=== PATIENT | male | born 1945 | race Caucasian/White ===

== ENCOUNTER → 2018-01-22 10:23 | Outpatient (BNVA) | payer MEDICARE, OTHER, SELFPAY | PROVIDERS: Visit Provider Student in an Organized Health Care Education/Training Program | DX: M85.642 Other cyst of bone, left hand (principal) | CPT/HCPCS: 99214 ==

== ENCOUNTER 2019-04-01 08:37 | Outpatient (REF) | payer MEDICARE, OTHER, SELFPAY ==
[2019-04-01 12:32] LABS: ALT 23 U/L (16-63); AST 12 U/L (15-37); Albumin 3.8 g/dL (3.4-5.0); Alkaline Phosphatase 55 U/L (46-116); Anion Gap 7.6 mmol/L (3-11); BUN 27 mg/dL (7-18); Bilirubin, Total 0.4 mg/dL (0.2-1.0); CO2 29.4 mmol/L (21.0-32.0); CREATININE 1.15 mg/dL (0.70-1.30); Calcium 8.9 mg/dL (8.5-10.1); Calculated LDL 166 mg/dL (<100); Chloride 105 mmol/L (98-107); Cholesterol 267 mg/dL (<200); Glucose 91 mg/dL (74-106); HDL Cholesterol 84 mg/dL (40-60); Potassium 4.6 mmol/L (3.5-5.1); Sodium 142 mmol/L (136-145); Triglyceride 85 mg/dL (<150)
== END 2019-04-01 08:57 ==
LOC: NCHCN 08:37
PROVIDERS: PCP Family Medicine; Visit Provider Family Medicine
DX: E78.5 Hyperlipidemia, unspecified (principal); I10 Essential (primary) hypertension
CPT/HCPCS: 80053; 80061

== ENCOUNTER 2020-01-08 15:32 | Outpatient (CLI) | payer MEDICARE, OTHER, SELFPAY ==
--- NOTE | 2020-02-12 08:43 | W.CARDEVENT ---
Date of service: 02/12/20 Time of Service: 08:43 Cardiac Event Recorder Referring Provider:: alexis Indications:: syncope Cardiac Event Note: This is a 30-day event recorder ordered for indication of syncope. ?The patient was in normal sinus rhythm for the majority of the recording with an average heart rate of 68 bpm. ?There were 0 critical and 0 serious events. ?There were no episodes of atrial fibrillation, no pauses greater than 3 seconds and no evidence of high degree heart block. ?There was 1 patient triggered event which was associated with sinus rhythm.
== END 2020-01-08 15:52 ==
PROVIDERS: PCP Family Medicine; Visit Provider Family Medicine
DX: R55 Syncope and collapse (principal)
CPT/HCPCS: 93270

== ENCOUNTER 2020-08-15 14:41 | Outpatient (REF) | payer MEDICARE, OTHER, SELFPAY ==
[2020-08-15 22:59] LABS: ALT 30 U/L (16-63); AST 20 U/L (15-37); Albumin 3.7 g/dL (3.4-5.0); Alkaline Phosphatase 64 U/L (46-116); Anion Gap 11.7 mmol/L (3-11); BUN 27 mg/dL (7-18); Bilirubin, Total 0.7 mg/dL (0.2-1.0); CO2 23.3 mmol/L (21.0-32.0); Calcium 8.6 mg/dL (8.5-10.1); Calculated LDL 132 mg/dL (<100); Chloride 106 mmol/L (98-107); Cholesterol 234 mg/dL (<200); Glucose 122 mg/dL (74-106); HDL Cholesterol 70 mg/dL (40-60); Potassium 4.1 mmol/L (3.5-5.1); Sodium 141 mmol/L (136-145); Total Protein 6.7 g/dL (6.4-8.2); Triglyceride 160 mg/dL (<150)
[2020-08-16 17:02] LABS: PSA, Screening 1.8 ng/mL (0.0-6.5)
== END 2020-08-15 14:42 | disposition home or self-care (01) ==
LOC: NCHCN 14:41
PROVIDERS: PCP Family Medicine; Visit Provider Family Medicine
DX: I10 Essential (primary) hypertension (principal); E78.5 Hyperlipidemia, unspecified; N40.0 Benign prostatic hyperplasia without lower urinary tract symptoms; Z12.5 Encounter for screening for malignant neoplasm of prostate
CPT/HCPCS: 80053; 80061; 84153

== ENCOUNTER 2022-05-14 09:24 | Outpatient (REF) | payer MEDICARE, OTHER, SELFPAY ==
[2022-05-14 16:52] LABS: Albumin 3.9 g/dL (3.4-5.0); Anion Gap 7.2 mmol/L (3-11); BUN 28 mg/dL (7-18); CO2 29.8 mmol/L (21.0-32.0); CREATININE 1.2 mg/dL (0.70-1.30); Calcium 9.1 mg/dL (8.5-10.1); Chloride 105 mmol/L (98-107); Estimated GFR 63.46 (mL/min/1.73m2); Glucose 99 mg/dL (74-106); Potassium 4.5 mmol/L (3.5-5.1); Sodium 142 mmol/L (136-145)
[2022-05-14 18:53] LABS: ALT 24 U/L (16-63); AST 14 U/L (15-37); Alkaline Phosphatase 67 U/L (46-116); Bilirubin, Total 0.6 mg/dL (0.2-1.0); Calculated LDL 160 mg/dL (<100); Cholesterol 271 mg/dL (<200); HDL Cholesterol 86 mg/dL (40-60); Total Protein 6.8 g/dL (6.4-8.2); Triglyceride 125 mg/dL (<150)
[2022-05-14 22:27] LABS: PSA, Screening 2.1 ng/mL (<=6.5)
== END 2022-05-14 09:25 | disposition home or self-care (01) ==
LOC: NCHCN 09:24
PROVIDERS: PCP Family Medicine; Visit Provider Family Medicine
DX: I10 Essential (primary) hypertension (principal); E78.5 Hyperlipidemia, unspecified; N40.0 Benign prostatic hyperplasia without lower urinary tract symptoms; Z12.5 Encounter for screening for malignant neoplasm of prostate
CPT/HCPCS: 80053; 80061; 84153

== ENCOUNTER 2022-07-04 10:39 | Outpatient (REF) | payer MEDICARE, OTHER, SELFPAY ==
[2022-07-04 14:30] LABS: ALT 32 U/L (16-63); AST 19 U/L (15-37)
== END 2022-07-04 10:40 | disposition home or self-care (01) ==
LOC: NCHCN 10:39
PROVIDERS: PCP Family Medicine; Visit Provider Family Medicine
DX: I10 Essential (primary) hypertension (principal)
CPT/HCPCS: 84450; 84460

== ENCOUNTER 2023-06-05 11:28 | Outpatient (REF) | payer MEDICARE, OTHER, SELFPAY ==
[2023-06-05 14:47] LABS: HCT 43.2 % (40.0-50.0); HGB 14.4 g/dL (13.5-17.5); MCH 32.4 pg (27.0-33.0); MCHC 33.3 % (32.0-36.0); MCV 97 fL (80-95); MPV 9.4 fL (8.0-11.0); Platelet Count 223 10^3/uL (130-400); RBC 4.44 10^6/uL (4.36-5.78); RDW 12.7 % (11.8-14.1); RDW-SD 45.6 fL; WBC 5.42 10^3/uL (4.4-10.8)
[2023-06-05 15:10] LABS: ALT 26 U/L (16-63); AST 15 U/L (15-37); Albumin 3.9 g/dL (3.4-5.0); Alkaline Phosphatase 64 U/L (46-116); Anion Gap 8.9 mmol/L (3-11); BUN 36 mg/dL (7-18); Bilirubin, Total 0.4 mg/dL (0.2-1.0); CO2 28.1 mmol/L (21.0-32.0); CREATININE 1.2 mg/dL (0.70-1.30); Calcium 8.9 mg/dL (8.5-10.1); Calculated LDL 106 mg/dL (<100); Chloride 108 mmol/L (98-107); Cholesterol 209 mg/dL (<200); Estimated GFR 63.07 (mL/min/1.73m2); Glucose 98 mg/dL (74-106); HDL Cholesterol 94 mg/dL (40-60); Potassium 4.4 mmol/L (3.5-5.1); Sodium 145 mmol/L (136-145); Triglyceride 47 mg/dL (<150)
== END 2023-06-05 11:29 | disposition home or self-care (01) ==
LOC: NCHCN 11:28
PROVIDERS: PCP Family Medicine; Visit Provider Family Medicine
DX: Z00.00 Encounter for general adult medical examination without abnormal findings (principal)
CPT/HCPCS: 80053; 80061; 85027

== ENCOUNTER → 2023-07-25 11:00 | Outpatient (BNVA) | payer MEDICARE, OTHER, SELFPAY | PROVIDERS: PCP Family Medicine; Referring Provider Family Medicine; Visit Provider Physical Therapy Assistant | DX: Z12.11 Encounter for screening for malignant neoplasm of colon (principal) ==

== ENCOUNTER 2023-08-12 06:11 | Day surgery (SDC) | payer MEDICARE, OTHER, SELFPAY ==
--- NOTE | 2023-08-11 15:08 | PDOC.DSDIS_ITS ---
Date of service: 08/12/23 Time of Service: 07:47 Discharge Plan Disposition Patient Disposition: Home Condition: Good Discharge Details Reason For Visit: screening colonoscopy Attending Provider: Antonio Sheldon Primary Care Provider: Herson Anand Home Meds and New Rx's Prescriptions: Continued CPAP Machine 10 unit 10 cm Transdermal HS Qty: 1 0RF Rx Instructions: CPAP MACHINE with humidifier and supplies. Pressure 10 cm H2O. DX: Sleep Apnea, 327.23. aspirin [Aspir-81] 81 MG tablet,delayed release (DR/EC) 81 mg PO DAILY tamsulosin [Flomax] 0.4 MG capsule 0.4 mg PO DAILY Qty: 90 Rx Instructions: for lower urinary track symptoms prednisolone acetate 5 ML drops,suspension 1 drp OS BID Patient Comments: 11/26/16 Dr Kurtz ([facility] in [place]). dc lisinopril-hydrochlorothiazide 20-12.5 mg tablet 1 tab PO DAILY simvastatin 20 mg tablet 20 mg PO DAILY cholecalciferol (vitamin D3) 25 mcg (1,000 unit) capsule 25 mcg PO DAILY Discontinued bisacodyl [Dulcolax (bisacodyl)] 5 mg tablet,delayed release (DR/EC) 5 mg PO ONCE Qty: 4 0RF Rx Instructions: Take per colonoscopy instructions provided by ordering providers office polyethylene glycol 3350 17 gram/dose powder 17 g PO ONCE Qty: 238 0RF Rx Instructions: Take per colonoscopy instructions provided by ordering providers office Discharge Instructions Additional Instructions: Prasanna, I really enjoyed meeting you today, and I am glad that you came in for your colonoscopy. Your prep was excellent, and I could see everything just fine. The colon is totally normal. Technically, you are good for 10 years. The most modern recommendations suggest to consider screening colonoscopy up to age 85. When he had 87, would encourage you to have a discussion with your primary care physician and get their opinion. If you are doing well, feel like you are in good shape, and this past colonoscopies have been an okay experience, and I be more than happy to do another scope at age 87. Alternatively, if you decide that this is her last one, I am certainly not offended. If you need anything at all, or have any questions, please do not hesitate to call. 1. If tolerated, consume a soft, low fiber diet for 1-2 days. 2. Do not drive, drink alcohol, operate machinery, make critical decisions, or do activities that require coordination or balance for 24 hours. 3. Because air was put into your colon during the procedure, expelling air from your rectum (passing gas or farting) is normal. 4. You may not have a bowel movement for 1-3 days because of the colonoscopy prep. This is normal. 5. Go directly to the emergency room if you notice any of the following: Develop chills (warm to touch), or if you have a thermometer and your temperature is above 101 Difficulty breathing or difficultly swallowing Persistent vomiting Severe abdominal pain, other than gas cramps Severe chest pain Black, tarry stools Any bleeding ? exceeding one tablespoon 6. Call your physician if the site where your intravenous was started becomes red, swollen, painful, and warm to touch. 7. Your physician has reviewed your pre-procedure medications. Please continue to take those medications as previously ordered. You will be given specific information/education regarding any changes to your medications before leaving. Activity:: Activity as Tolerated Diet:: As Tolerated Discharge Orders Discharge Orders: Discharge Order (Routine); Ordered 08/11/23 Ordered By: Antonio Sheldon DS: Diagnosis Discharge Diagnosis (1) Encounter for screening colonoscopy: Status: Acute Asessment and Plan: Negative screening colonoscopy today
--- NOTE | 2023-08-11 15:09 | W.COLOREPORT ---
Date of service: 08/12/23 Time of Service: 07:48 Colonoscopy Report Date of procedure: 08/12/23 Pre-op diagnosis general: screning colonoscopy Procedure: colonoscopy Surgeon: Antonio Sheldon Anesthesia Type: General:No Airway Estimated blood loss (mL): 0 Pathology: none sent Complications: None Disposition: same day Indications: Prasanna is a 77 year old man who needs a screening colonoscopy Prep: Miralax/Dulcolax Procedure Start Time: 07:27 Procedure End Time: 07:43 Retraction Time: 8 Findings: Negative screening colonoscopy Procedure Description: After the induction of anesthesia, and with the patient in left lateral decubitus position, I began by performing an external anorectal exam.? Perineum and skin were normal, as was the anal verge.? There was no evidence of external hemorrhoids.? Next, I performed a digital rectal exam.? I did not appreciate any abnormal findings.? Next, I advanced a colonoscope into the rectal vault.? I performed retroflexion.? This appeared normal.? Using insufflation, I then advanced the colonoscope beyond the rectal folds and into the sigmoid colon before advancing towards the cecum.? The quality of the prep was outstanding.? The scope was noted to be in the cecum by identification of the ileocecal valve and appendiceal orifice.? I then began withdrawing the colonoscope using repeated irrigation as necessary for full evaluation of the colonic mucosa. ?Once the scope was withdrawn to the level of the rectum, great care was taken to examine portions of the rectal folds.? Finally, the scope was withdrawn and the patient was brought to the same-day surgery recovery unit as the anesthetic wore off. ?The findings and instructions were shared with the patient prior to discharge. [place] Bowel Prep [place] Bowel Prep Right Colon: 3 Left Colon: 3 Transverse Colon: 3 Total Score: 9
[2023-08-12 06:33] VITALS: BP 153/75; PULSE 67; RESP 18; TEMP 36.6; O2SAT 98
[2023-08-12] MEDS: Lactated Ringers 1,000 ML 80 ML IV (06:56)
--- NOTE | 2023-08-12 06:59 | W.ANESPRE ---
General Info Date of Service Date Performed: 08/12/23 Height: 5 ft 11.5 in Weight: 101.6 kg Body Mass Index (BMI): 30.8 Surgical Procedure: Operation Date: 08/12/23 07:35 Proposed Procedure Side Surgeon lourdes Sheldon MD Meds Allergies and Home Medications Allergies Allergy/AdvReac Type Severity Reaction Status Date / Time fluticasone furoate AdvReac Intermediate pneumonia Verified 08/12/23 06:20 [From Arnuity Ellipta] Home Medication Medication Instructions Recorded aspirin 81 mg tablet,delayed 81 mg PO DAILY 01/27/16 release (Aspir-) tamsulosin 0.4 mg capsule (Flomax) 0.4 mg PO DAILY #90 tab-caps 05/02/16 prednisolone acetate 1 % eye 1 drp OS BID 11/26/16 drops,suspension cholecalciferol (vitamin D3) 25 25 mcg PO DAILY 07/12/23 mcg (1,000 unit) capsule lisinopril 20 1 tab PO DAILY 07/12/23 mg-hydrochlorothiazide 12.5 mg tablet simvastatin 20 mg tablet 20 mg PO DAILY 07/12/23 Current Visit Medications: Current Medications Generic Name Dose Route Start Last Admin Trade Name Freq PRN Reason Stop Dose Admin Hyoscyamine Sulfate 0.125 mg 08/11/23 15:10 Hyoscyamine 0.125 Mg Sl/Oral/Chew SL 09/10/23 15:09 DIRECTED PRN Ringer's Solution 1,000 mls @ 80 mls/hr 08/12/23 06:00 08/12/23 06:56 IV 09/08/23 23:59 80 mls/hr INFUSION ISMAEL Administration IV Miscellaneous Supplies 1 each 08/12/23 06:00 Iv Access IV 09/08/23 23:59 DIRECTED ISMAEL Ondansetron HCl 4 mg 08/11/23 15:10 Ondansetron 4 Mg/2 Ml Vial IVP 09/10/23 15:09 Q4H PRN PRN Nausea / Vomiting Sodium Chloride 0 ml 08/12/23 06:00 Normal Saline Flush 10 Ml Syr IV 09/08/23 23:59 PRN PRN Sodium Chloride 0 ml 08/12/23 06:00 Normal Saline 10 Ml Vial IJ 09/08/23 23:59 DIRECTED PRN Sterile Water 0 ml 08/12/23 06:00 Water,Injection,Sterile 10 Ml Vial IJ 09/08/23 23:59 DIRECTED PRN [facility] Active Problems Active Problems: Problem Status Onset Code Encounter for screening colonoscopy Z12.11 Cyst of bone of left hand M85.642 Unspecified hearing loss 05/01/11 H91.90 Sensorineural hearing loss, bilateral 10/18/15 H90.3 Sciatica 02/25/09 M54.30 Obesity (BMI 30.0-34.9) 10/14/15 E66.9 Obstructive sleep apnea (adult) (pediatric) 01/25/09 G47.33 Lipoma of scalp 01/25/03 D17.0 Lipoma of unspecified site 01/25/03 D17.9 Other and unspecified hyperlipidemia 04/25/04 E78.5 Conductive hearing loss, unspecified 05/01/11 H90.2 Essential hypertension 02/15/14 I10 Chronic obstructive pulmonary disease 12/19/15 J44.9 Complications of transplanted organ, unspecified site 11/23/08 T86.90 Medical History Medical History Low back pain BPH (benign prostatic hyperplasia) Cataract Syncope and collapse Hyperlipidemia Surgical History Surgical History History of colonoscopy Excision, Lipoma L temporal scalp, 2013 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 Substance Use Substance use: Occasionally Substance use type: marijuana Vital Signs and Lab Results Vital Signs Most Recent Vital Signs in EMR: Most Recent Vital Signs Temp Pulse Resp BP Pulse Ox 36.6 C 67 18 153/75 H 98 08/12/23 06:33 08/12/23 06:33 08/12/23 06:33 08/12/23 06:33 08/12/23 06:33 Lab Results Blood Type / Crossmatch: No Data to Display Complete Blood Count: No Data to Display Complete Metabolic Panel: No Data to Display Liver Function Panel: No Data to Display Coagulation Panel: No Data to Display Cardiac Panel: No Data to Display Arterial Blood Gas: No Data to Display Venous Blood Gas: No Data to Display Pancreas Panel: No Data to Display Thyroid Panel: No Data to Display Infectious Disease: No Data to Display Blood Cultures: No Data to Display Toxicology Panel: No Data to Display Anesthesia Assessment and Plan Anesthesia History Personal History: No History of Anesthesia Complications Family History: No Family History of Anesthesia Complications Exercise Tolerance Exercise Tolerance: Metabolic Equivalents>4 Pertinent Negatives Pertinent Negatives: No Symptoms of GERD Cardiac & Pulmonary Exam Cardiac Exam: Normal S1/S2 Heart Sounds Pulmonary Exam: Clear Bilateral Breath Sounds Implantable Cardiac Device Does patient have a Pacemaker or an ICD?: No Airway Exam Known Difficult Airway: No Mallampati Class: 2 Mouth Opening: Normal (> 3cm) Thyromental Distance: Greater than 3 cm Neck Range of Motion: Full ROM Neck Circumference: Normal Teeth Condition: Normal Dentition ASA Classification ASA Score: ASA 2 Emergency Case?: No NPO Status NPO Status: NPO Clears >2 hours, Solids >8 hours Anesthesia Plan Resuscitation Status: Full Code Anesthesia Technique: General Anesthesia Airway Planned: Natural Airway Monitors Used: Standard Monitors
[2023-08-12 07:00] VITALS: BMI 30.8
[2023-08-12 07:49] VITALS: BP 97/61; PULSE 67; RESP 18; TEMP 36.5; O2SAT 96
--- NOTE | 2023-08-12 07:54 | W.ANESPOSTOP ---
Postoperative Evaluation Date, Time and Location Date Performed: 08/12/23 Time Performed: 07:54 Patient Location: Day Surgery Unit Vital Signs Most Recent Imported Vital Signs: Most Recent Vital Signs Temp Pulse Resp BP Pulse Ox 36.5 C 67 18 97/61 L 96 08/12/23 07:49 08/12/23 07:49 08/12/23 07:49 08/12/23 07:49 08/12/23 07:49 Pain Score Most Recent Pain Score: Most Recent Pain Score Pain Level 0 08/12/23 06:33 Assessment Mental Status: Awake (Alert & Oriented to Patient Baseline) Airway and Respiratory Function: Patent airway with normal (patient baseline) respiratory exam Cardiovascular Function: Hemodynamically Stable Hydration Status: Adequately Hydrated Nausea & Vomiting: No Nausea or Vomiting Pain: Pt. Denies Any Pain Peripheral Nerve Block: Patient did not receive a nerve block
[2023-08-12 08:13] VITALS: BP 117/60; PULSE 68; RESP 16; TEMP 36.2; O2SAT 99
== END 2023-08-12 08:35 | disposition home or self-care (01) ==
LOC: SUR 06:12
PROVIDERS: PCP Family Medicine; Visit Provider Surgery
PROC: 0DJD8ZZ Inspection of Lower Intestinal Tract, Via Natural or Artificial Opening Endoscopic (ICD-10-PCS; CPT 45378; principal; 2023-08-12 07:30)
DX: Z12.11 Encounter for screening for malignant neoplasm of colon (principal); I10 Essential (primary) hypertension; G47.33 Obstructive sleep apnea (adult) (pediatric)
CPT/HCPCS: G0121; J2001; J2704

== ENCOUNTER 2024-04-09 02:32 | Outpatient (CLI) | payer OTHER, SELFPAY ==
--- NOTE | 2024-04-09 10:50 | DI.RAD_ITS ---
Exam(s) XR CHEST 2V PA LATERAL EXAM: XR CHEST 2V PA LATERAL CLINICAL HISTORY: DYSPNEA ON EXERTION,,PULMONARY HYPERTENSION,HLD,? COPD,? H/O ASBESTOS. TECHNIQUE: 2D digital imaging was performed. COMPARISON: No exams were available for comparison FINDINGS: 2 views: Heart size is normal. The mediastinum is not widened. Lungs are clear. No infiltrates nor pleural effusions. IMPRESSION: No acute pulmonary findings. DATA REPOSITORY: RADIATION DOSE DELIVERED:
== END 2024-04-09 02:52 ==
LOC: DI 02:32
PROVIDERS: PCP Family Medicine; Visit Provider Nurse Practitioner
DX: R06.09 Other forms of dyspnea (principal)
CPT/HCPCS: 71046

== ENCOUNTER 2024-09-29 12:38 | Outpatient (REF) | payer MEDICARE, OTHER, SELFPAY ==
--- NOTE | 2024-09-29 13:45 | SKI_PTH ---
PATIENT: Shorty Nair III LOC: [facility]#:[id number] AGE/SX: 78/M ROOM: RE09/29/[address]: Herson Anand : 1945 BED: DIS: 09/29/2024 SPEC #: [id number] RECD: 09/30/24 12:47 STATUS: NED REQ #: [id number] KRISTEL: 09/29/24 13:[address]: Herson Anand DEPT: Surgical Specimen RECD BY: Cielo Heaton Tissues: 1 - SKIN BIOPSY(SHAVE/PUNCH) Procedures: SKIN LEVEL 4 Comments: [id number]
== END 2024-09-29 12:39 | disposition home or self-care (01) ==
LOC: NCHCN 12:38
PROVIDERS: PCP Family Medicine; Visit Provider Family Medicine
DX: D22.62 Melanocytic nevi of left upper limb, including shoulder (principal)
CPT/HCPCS: 88305

== ENCOUNTER 2024-12-21 15:16 | Outpatient (REF) | payer MEDICARE, OTHER, SELFPAY ==
--- NOTE | 2024-12-21 14:40 | SKI_PTH ---
PATIENT: Shorty Nair III LOC: [facility]#:[id number] AGE/SX: 79/M ROOM: RE12/21/[address]: Herson Anand : 1945 BED: DIS: 12/21/2024 SPEC #: [id number] RECD: 12/22/24 12:44 STATUS: NED REApolinar #: [id number] KRISTEL: 12/21/24 14:[address]: Herson Anand DEPT: Surgical Specimen RECD BY: Cielo Heaton Tissues: 1 - SKIN BIOPSY(SHAVE/PUNCH) Procedures: SKIN LEVEL 4 Comments: [id number]
== END 2024-12-21 15:17 | disposition home or self-care (01) ==
LOC: LBN 15:16
PROVIDERS: PCP Family Medicine; Visit Provider Family Medicine
DX: L30.8 Other specified dermatitis (principal)
CPT/HCPCS: 88305